=== PATIENT | female | born 1985 | race Caucasian/White ===

== ENCOUNTER 2016-06-13 12:03 | Emergency (ER) | payer OTHER ==
--- NOTE | 2016-06-13 15:54 | ED NURSING NOTES ---
Clinical Report - Nurses [facility] [place] [address] 06/13/2016 12:04 Patient: HINA RAPHAEL I TRIAGE Chief Complaint: ABDOMINAL PAIN. --13:26 Moiz Rowell R.N. Chief Complaint: ABDOMINAL CRAMPS and SPOTTING. --13:30 Moiz Rowell R.N. 13:32 06/13/16. BP: 117/59 (regular adult cuff) taken on the left arm, via an automated monitor, while lying. HR: 68. RR: 16. O2 saturation: 98%. Temp: 98.3 F (oral). Pain level now: 03/18. --13:32 Moiz Rowell R.N. Weight: 76.6 kg stated. Height/Length: 67 inches Per Patient. BMI: 26.5. --13:32 Moiz Rowell R.N. Medications Oral. --13:33 Moiz Rowell R.N. Allergies No Known Drug Allergy. --13:33 Moiz Rowell R.N. History Arrived by private vehicle, and accompanied by family. --13:26 Moiz Rowell R.N. Onset. (about 1 months). ( Patient presents to the ED with symptoms of lower abdominal cramping and spotting x1 month. Patient states she is 9 weeks . States that she has been evaluated in the ED twice for the same symptoms, but has been told that she is too early on in her to know if she has had a miscarriage. Patient states that she had a miscarriage in December of 2015.). Last oral intake by patient was yesterday. PAST MEDICAL HX: The patient has had care by an telehealth case manager. SOCIAL HX: Never smoker. Alcohol use. (no). History of drug use. (no). No infectious disease exposure. FALL RISK ASSESSMENT: Fall risk assessment completed. No fall risk identified. NUTRITIONAL RISK ASSESSMENT: The nutritional risk assessment revealed no deficiencies. FUNCTIONAL ASSESSMENT: Functional assessment: no impairments noted. LEARNING NEEDS ASSESSMENT: The learning needs assessment revealed no barriers. SKIN INTEGRITY ASSESSMENT: Skin integrity risk assessment completed. No skin integrity risk identified. --13:30 Moiz Rowell R.N. Treatment REFRACTIVE SURGEON: None. --13:30 Moiz Rowell R.N. PAST MEDICAL HX: OB history: G 9; P 6; Ab 2. --13:30 Moiz Rowell R.N. PROBLEMS: Problems. UTI - Urinary Tract Infection. Threatened . . Ectopic . Hypothyroidism. --13:34 Moiz Rowell R.N. ADDITIONAL SURGERIES: Dilatation & Curettage. Salpingectomy [2010]. --13:34 Moiz Rowell R.N. PHYSICAL ASSESSMENT Ambulatory to room. GENERAL / NEURO / PSYCH: Alert. Oriented X 4. Appears in no acute distress. HEENT: Mucous membranes are pink. RESPIRATORY: Respirations not labored. Breath sounds within normal limits. CVS: Normal heart rate and rhythm. Capillary refill less than 2 seconds. GI / : Abdomen soft and nontender. Bowel sounds within normal limits. Scant vaginal bleeding present, consisting of bright red blood (uses panty liners). EXTREMITIES: No lower extremity edema. SKIN: Skin is warm and dry. --13:35 Moiz Rowell R.N. NURSING PROGRESS NOTES The initial plan of care for this patient includes an assessment with efforts to address the patient's anxiety; impairment of the gastrointestinal and genitourinary system. This plan of care was discussed with the patient. Patient gowned. Head of bed elevated. Reassurance given. --13:27 Moiz Rowell R.N. Call light placed in reach. Side rails up x 1. --13:35 Moiz Rowell R.N. 14:15. Patient ID band checked for patient name and birthdate: patient confirmed. Blood samples drawn from the right antecubital space with 21g butterfly by tech ; labeled in presence of the patient: rainbow set. Addiction Medicine Physician provided for the pelvic exam by the physician. Urine collected with return of yellow-colored urine; sample sent to lab for urinalysis and culture. Specimen labeled in the presence of the patient. --15:04 Salina Flowers. DISPOSITION / DISCHARGE Condition at departure: improved. The goals identified in the patient's plan of care were met. No learning barriers present. Discharge instructions provided and reviewed with the patient. Reviewed medication(s) side effects, precautions, dosing and course information. Patient verbalized understanding. Written instructions provided in Ghanaian. The patient was discharged home and accompanied by spouse. She left the Emergency Department ambulatory and via private vehicle. Patient driving. FALL RISK ASSESSMENT: Fall risk assessment completed. No fall risk identified. --16:13 Moiz Rowell R.N. 16:11 06/13/16. BP: 116/68 taken on the right arm, while sitting. HR: 65. RR: 16. O2 saturation: 100%. Temp: 98.2 F (oral). Pain level now: 0/10. --16:13 Moiz Rowell R.N. Departure time: 1613 PM. --16:13 Moiz Rowell R.N. Locked/Released at 06/13/2016 16:15 by Moiz Rowell R.N.
--- NOTE | 2016-06-13 15:54 | ED ORDER SUMMARY ---
..... Patient: HINA RAPHAEL I OrderSheet [facility] VisitID: [id number] [place] [address] 30y, F Registration Date/Time: 06/13/2016 ORDER SHEET Weight: 76.6 kg (stated) Allergies: No Known Drug Allergy GENERAL ORDERS: US OB 1st Trimester w Transvag (9 wks) Urgent (14:00 06/13/2016 HBivens A.R.N.P.) (Ack 14:02 LTapper) (14:26 HOShaughnessy R.N.) UA-Culture if indicated Urgent (14:06/13/2016 HBivens A.R.N.P.) (Ack 14:02 LTapper) (14:26 HOShaughnessy R.N.) Serum Quantitative Urgent (14:06/13/2016 HBivens A.R.N.P.) (Ack 14:02 LTapper) (14:26 HOShaughnessy R.N.) Pelvic Exam Setup (14:01 06/13/2016 HBivens A.R.N.P.) (14:26 HOShaughnessy R.N.) Wet Prep (Cervix) (cervix) Urgent (14:14 06/13/2016 HBivens A.R.N.P.) (14:26 HOShaughnessy R.N.) (Ack 14:27 LTapper) MEDICATION ORDERS: IV FLUIDS: ORDER SHEET NOTES: [Electronically signed by Moiz Rowell R.N. (16:15 06/13/2016)] [Electronically signed by Kristie Nix.R.N.P. (16:42 06/13/2016)] [Electronically locked/signed by Moiz Rowell R.N. (16:15 06/13/2016)]
--- NOTE | 2016-06-13 15:54 | ED CLINICAL REPORT ---
Clinical Report - Physicians/Mid Levels [facility] [address] [place] [address] 06/13/2016 12:04 Patient: HINA RAPHAEL I Time Seen: 1328; initial patient contact, initial documentation, patient care assumed. Arrived- By private vehicle. Historian- patient. RETURN VISIT: recently seen in this ED by another ED physician. Seen now for the same problem as before. HISTORY OF PRESENT ILLNESS Chief Complaint: PELVIC PAIN. This started about 1 months ago and still present. The symptoms are described as moderate. The patient has had pelvic pain. She has had abnormal bleeding described as spotting this am. No vaginal pain, low back pain, flank pain, vaginal discharge or pain with urination. No urinary frequency, urgency of urination or hematuria. 9. Para 6. Abortions 2. Sexual history - sexually active, engages in unprotected sex and heterosexual. No contraception. Sexually active. Confirmed . In 1st trimester. Has had care by private doctor. Recent sonogram showed intrauterine . G 9. P 6. Receiving care by private doctor. Similar symptoms previously: Frequently, as bad. Recent medical care: The patient was seen recently in the emergency department and office. ( saw ob last week, US done, everything ok, doesn't know why she is hurting, txed at Prov 05/29 same thing). REVIEW OF SYSTEMS No vomiting, diarrhea, fever, difficulty breathing or chest pain. All systems otherwise negative, except as recorded above. PAST HISTORY See nurses notes. ( PROBLEMS: Problems. UTI - Urinary Tract Infection. Threatened . . Ectopic . Hypothyroidism. --13:34 Moiz Rowell, R.N. ADDITIONAL SURGERIES: Dilatation & Curettage. Salpingectomy [2010]. --13:34 Moiz Rowell, R.N.). SOCIAL HISTORY Never smoker. No alcohol use or drug use. No recent travel. Is a local resident. She lives with spouse. FAMILY HISTORY Negative. ADDITIONAL NOTES The nursing notes have been reviewed with agreement regarding the chief complaint, HPI, ROS, PMH and patient medications and allergies. PHYSICAL EXAM Vital Signs: 06/13/2016 13:32 BP: 117/59. HR: 68. RR: 16. O2 saturation: 98%. Temp: 98.3 F. Pain level now: 03/18. Have been reviewed as normal and appear to be correct. Appearance: Alert. Oriented X3. No acute distress. HEENT: Normal external inspection. ENT: Pharynx normal. Neck: Neck supple. CVS: Heart sounds normal. Respiratory: No respiratory distress. Breath sounds normal. Chest nontender. Abdomen: Soft and nontender. Bowel sounds normal. No organomegaly. No mass. Back: Normal external inspection. : External inspection normal. Speculum exam abnormal. A moderate amount of thick and white vaginal discharge present. Bimanual exam normal. Skin: Skin warm and dry. Normal skin color. No rash. Normal skin turgor. Extremities: Extremities nontender. No lower extremity edema. Neuro: Oriented X 3. Mood/affect normal. No sensory deficit. LABS, X-RAYS, AND EKG Pelvic Sonogram: . verbal report from [employer] Alicia irregular gestational sac, no bleed, no heart beat. Interpretation time: 1540. Laboratory Tests: UA-Culture if indicated: (PARI: 06/13/2016 13:35) ( MsgRcvd 06/13/2016 15:02) Final results Test Result Flag Units (Reference) URINE COLOR YELLOW URINE APPEARANCE CLEAR URINE GLUCOSE NEGATIVE (NEGATIVE) URINE BILIRUBIN NEGATIVE (NEGATIVE) URINE KETONE NEGATIVE (NEGATIVE) URINE SPECIFIC GRAVITY 1.010 (1.010-1.030) URINE PH 6.5 (5.0-8.0) URINE PROTEIN NEGATIVE (NEGATIVE) URINE UROBILINOGEN 0.2 EU/dL (0.2-1.0) URINE NITRITE NEGATIVE (NEGATIVE) URINE BLOOD TRACE-INTACT (NEGATIVE) URINE LEUK ESTERASE POSITIVE (NEGATIVE) URINE RBC 3-5 rbc/hpf (0-1) URINE WBC 5-10 wbc/hpf (0-1) URINE EPITHELIAL CELLS 5-10 EPI/hpf (0-5) URINE BACTERIA FEW (1+) (NONE SEEN) URINE COMMENT CULTURE INDICATED URINE CULTURES ARE SET-UP BASED ON THE FOLLOWING CRITERIA:POSITIVE NITRITEPOSITIVE LEUKOCYTE ESTERASEGREATER THAN 10 WHITE BLOOD CELLSMODERATE (2+) OR GREATER BACTERIA Serum Quantitative: (PARI: 06/13/2016 14:30) ( MsgRcvd 06/13/2016 15:48) Final results Test Result Flag Units (Reference) BETA HCG, QUANTITATIVE 90165 mIU/mL REFERENCE RANGE:Adult Males: <2 mIU/mLNon- Females: <6 mIU/mL Females:Approximate Approximate hCGGestational Age Range (mIU/mL) 0-1 week 0-501-2 weeks 40-3002-3 weeks 100-80952-9 weeks 500-03004-5 months 5,000-200,0002-3 months 10,000-100,0002nd trimester 3,000-50,0003rd trimester 1,000-50,000 Wet Prep: (PARI: 06/13/2016 14:15) ( MsgRcvd 06/13/2016 14:38) Final results SPECIMEN DESCRIPTION: CERVIX Test Result Flag Units (Reference) WET MOUNT CLUE CELLS:: FEW * EPITHELIAL CELLS: MODERATE -- SOURCE?: CX WHITE BLOOD CELLS: FEW TRICHOMONAS:: NONE -- YEAST:: NONE . PROGRESS AND PROCEDURES Course of Care: 14:14 06/13/16. pt has adiel for frequent er visits especially since Mar, see report for full details 14:16 06/13/16. past er records reviewed 05/24 quant 4696 O+ wet mount and gc tested on 05/13 all neg. Patient counseled in person regarding the patient's stable condition, test results and diagnosis. 15:51. Differential Diagnosis: I considered urinary tract infection, ovarian cyst, , ectopic , pelvic inflammatory disease, pelvic abscess, endometriosis and viral syndrome as a possible cause of pelvic pain in this patient. This is a partial list of diagnoses considered. Above considerations are based on history, physical exam, laboratory data and other information. Differential diagnosis was discussed with patient. Disposition: Discharged home in good and unchanged condition (15:54). Condition: good and stable. CLINICAL IMPRESSION Acute mild bacterial vaginitis Threatened . Ultrasound demonstrated an intrauterine . Acute urinary tract infection. No cystitis, pyelonephritis or hematuria. Not associated with indwelling catheter or obstruction. INSTRUCTIONS Warnings: GENERAL WARNINGS: Return or contact your physician immediately if your condition worsens or changes unexpectedly, if not improving as expected, or if other problems arise. Specifically return if problem worsens. Prescription Medications: Flagyl 500 mg: Take 1 tablet orally every 12 hours for 7 days. No refill. Substitution is permissible. Macrobid 100 mg: Take 1 capsule orally every 12 hours for 7 days. No refills. Substitution is permissible. Follow-up: Follow up with an vegetable farming supervisor in about three days even if well. Call for an appointment. Summary of care provided to patient. Understanding of the discharge instructions verbalized by patient. (Electronically signed by Kristie Nix A.R.N.P. 06/13/2016 16:42)
--- NOTE | 2016-06-13 15:54 | ED NURSING NOTES ---
Clinical Report - Nurses [place] [address] 06/13/2016 12:04 Patient: HINA RAPHAEL I TRIAGE Chief Complaint: ABDOMINAL PAIN. --13:26 Moiz Rowell R.N. Chief Complaint: ABDOMINAL CRAMPS and SPOTTING. --13:30 Moiz Rowell R.N. 13:32 06/13/16. BP: 117/59 (regular adult cuff) taken on the left arm, via an automated monitor, while lying. HR: 68. RR: 16. O2 saturation: 98%. Temp: 98.3 F (oral). Pain level now: 03/18. --13:32 Moiz Rowell R.N. Weight: 76.6 kg stated. Height/Length: 67 inches Per Patient. BMI: 26.5. --13:32 Moiz Rowell R.N. Medications Oral. --13:33 Moiz Rowell R.N. Allergies No Known Drug Allergy. --13:33 Moiz Rowell R.N. History Arrived by private vehicle, and accompanied by family. --13:26 Moiz Rowell R.N. Onset. (about 1 months). ( Patient presents to the ED with symptoms of lower abdominal cramping and spotting x1 month. Patient states she is 9 weeks . States that she has been evaluated in the ED twice for the same symptoms, but has been told that she is too early on in her to know if she has had a miscarriage. Patient states that she had a miscarriage in December of 2015.). Last oral intake by patient was yesterday. PAST MEDICAL HX: The patient has had care by an operator maintainer. SOCIAL HX: Never smoker. Alcohol use. (no). History of drug use. (no). No infectious disease exposure. FALL RISK ASSESSMENT: Fall risk assessment completed. No fall risk identified. NUTRITIONAL RISK ASSESSMENT: The nutritional risk assessment revealed no deficiencies. FUNCTIONAL ASSESSMENT: Functional assessment: no impairments noted. LEARNING NEEDS ASSESSMENT: The learning needs assessment revealed no barriers. SKIN INTEGRITY ASSESSMENT: Skin integrity risk assessment completed. No skin integrity risk identified. --13:30 Moiz Rowell R.N. Treatment BLASTING MINER: None. --13:30 Moiz Rowell R.N. PAST MEDICAL HX: OB history: G 9; P 6; Ab 2. --13:30 Moiz Rowell R.N. PROBLEMS: Problems. UTI - Urinary Tract Infection. Threatened . . Ectopic . Hypothyroidism. --13:34 Moiz Rowell R.N. ADDITIONAL SURGERIES: Dilatation & Curettage. Salpingectomy [2010]. --13:34 Moiz Rowell R.N. PHYSICAL ASSESSMENT Ambulatory to room. GENERAL / NEURO / PSYCH: Alert. Oriented X 4. Appears in no acute distress. HEENT: Mucous membranes are pink. RESPIRATORY: Respirations not labored. Breath sounds within normal limits. CVS: Normal heart rate and rhythm. Capillary refill less than 2 seconds. GI / : Abdomen soft and nontender. Bowel sounds within normal limits. Scant vaginal bleeding present, consisting of bright red blood (uses panty liners). EXTREMITIES: No lower extremity edema. SKIN: Skin is warm and dry. --13:35 Moiz Rowell R.N. NURSING PROGRESS NOTES The initial plan of care for this patient includes an assessment with efforts to address the patient's anxiety; impairment of the gastrointestinal and genitourinary system. This plan of care was discussed with the patient. Patient gowned. Head of bed elevated. Reassurance given. --13:27 Moiz Rowell R.N. Call light placed in reach. Side rails up x 1. --13:35 Moiz Rowell R.N. 14:15. Patient ID band checked for patient name and birthdate: patient confirmed. Blood samples drawn from the right antecubital space with 21g butterfly by tech ; labeled in presence of the patient: rainbow set. Deep Fryer Assembler provided for the pelvic exam by the physician. Urine collected with return of yellow-colored urine; sample sent to lab for urinalysis and culture. Specimen labeled in the presence of the patient. --15:04 Salina Flowers. DISPOSITION / DISCHARGE Condition at departure: improved. The goals identified in the patient's plan of care were met. No learning barriers present. Discharge instructions provided and reviewed with the patient. Reviewed medication(s) side effects, precautions, dosing and course information. Patient verbalized understanding. Written instructions provided in East Timorese. The patient was discharged home and accompanied by spouse. She left the Emergency Department ambulatory and via private vehicle. Patient driving. FALL RISK ASSESSMENT: Fall risk assessment completed. No fall risk identified. --16:13 Moiz Rowell R.N. 16:11 06/13/16. BP: 116/68 taken on the right arm, while sitting. HR: 65. RR: 16. O2 saturation: 100%. Temp: 98.2 F (oral). Pain level now: 0/10. --16:13 Moiz Rowell R.N. Departure time: 1613 PM. --16:13 Moiz Rowell R.N. Locked/Released at 06/13/2016 16:15 by Moiz Rowell R.N.
--- NOTE | 2016-06-13 15:54 | ED ORDER SUMMARY ---
..... Patient: HINA RAPHAEL I OrderSheet [facility] VisitID: [id number] [place] [address] 30y, F Registration Date/Time: 06/13/2016 ORDER SHEET Weight: 76.6 kg (stated) Allergies: No Known Drug Allergy GENERAL ORDERS: US OB 1st Trimester w Transvag (9 wks) Urgent (14:00 06/13/2016 HBivens A.R.N.P.) (Ack 14:02 LTapper) (14:26 HOShaughnessy R.N.) UA-Culture if indicated Urgent (14:06/13/2016 HBivens A.R.N.P.) (Ack 14:02 LTapper) (14:26 HOShaughnessy R.N.) Serum Quantitative Urgent (14:06/13/2016 HBivens A.R.N.P.) (Ack 14:02 LTapper) (14:26 HOShaughnessy R.N.) Pelvic Exam Setup (14:01 06/13/2016 HBivens A.R.N.P.) (14:26 HOShaughnessy R.N.) Wet Prep (Cervix) (cervix) Urgent (14:14 06/13/2016 HBivens A.R.N.P.) (14:26 HOShaughnessy R.N.) (Ack 14:27 LTapper) MEDICATION ORDERS: IV FLUIDS: ORDER SHEET NOTES: [Electronically signed by Moiz Rowell R.N. (16:15 06/13/2016)] [Electronically signed by Kristie Nix.R.N.P. (16:42 06/13/2016)] [Electronically locked/signed by Moiz Rowell R.N. (16:15 06/13/2016)]
--- NOTE | 2016-06-13 15:54 | ED CLINICAL REPORT ---
Clinical Report - Physicians/Mid Levels [facility] [address] [place] [address] 06/13/2016 12:04 Patient: HINA RAPHAEL I Time Seen: 1328; initial patient contact, initial documentation, patient care assumed. Arrived- By private vehicle. Historian- patient. RETURN VISIT: recently seen in this ED by another ED physician. Seen now for the same problem as before. HISTORY OF PRESENT ILLNESS Chief Complaint: PELVIC PAIN. This started about 1 months ago and still present. The symptoms are described as moderate. The patient has had pelvic pain. She has had abnormal bleeding described as spotting this am. No vaginal pain, low back pain, flank pain, vaginal discharge or pain with urination. No urinary frequency, urgency of urination or hematuria. 9. Para 6. Abortions 2. Sexual history - sexually active, engages in unprotected sex and heterosexual. No contraception. Sexually active. Confirmed . In 1st trimester. Has had care by private doctor. Recent sonogram showed intrauterine . G 9. P 6. Receiving care by private doctor. Similar symptoms previously: Frequently, as bad. Recent medical care: The patient was seen recently in the emergency department and office. ( saw ob last week, US done, everything ok, doesn't know why she is hurting, txed at Prov 05/29 same thing). REVIEW OF SYSTEMS No vomiting, diarrhea, fever, difficulty breathing or chest pain. All systems otherwise negative, except as recorded above. PAST HISTORY See nurses notes. ( PROBLEMS: Problems. UTI - Urinary Tract Infection. Threatened . . Ectopic . Hypothyroidism. --13:34 Moiz Rowell, R.N. ADDITIONAL SURGERIES: Dilatation & Curettage. Salpingectomy [2010]. --13:34 Moiz Rowell, R.N.). SOCIAL HISTORY Never smoker. No alcohol use or drug use. No recent travel. Is a local resident. She lives with spouse. FAMILY HISTORY Negative. ADDITIONAL NOTES The nursing notes have been reviewed with agreement regarding the chief complaint, HPI, ROS, PMH and patient medications and allergies. PHYSICAL EXAM Vital Signs: 06/13/2016 13:32 BP: 117/59. HR: 68. RR: 16. O2 saturation: 98%. Temp: 98.3 F. Pain level now: 03/18. Have been reviewed as normal and appear to be correct. Appearance: Alert. Oriented X3. No acute distress. HEENT: Normal external inspection. ENT: Pharynx normal. Neck: Neck supple. CVS: Heart sounds normal. Respiratory: No respiratory distress. Breath sounds normal. Chest nontender. Abdomen: Soft and nontender. Bowel sounds normal. No organomegaly. No mass. Back: Normal external inspection. : External inspection normal. Speculum exam abnormal. A moderate amount of thick and white vaginal discharge present. Bimanual exam normal. Skin: Skin warm and dry. Normal skin color. No rash. Normal skin turgor. Extremities: Extremities nontender. No lower extremity edema. Neuro: Oriented X 3. Mood/affect normal. No sensory deficit. LABS, X-RAYS, AND EKG Pelvic Sonogram: . verbal report from Aldis Alicia irregular gestational sac, no bleed, no heart beat. Interpretation time: 1540. Laboratory Tests: UA-Culture if indicated: (PARI: 06/13/2016 13:35) ( MsgRcvd 06/13/2016 15:02) Final results Test Result Flag Units (Reference) URINE COLOR YELLOW URINE APPEARANCE CLEAR URINE GLUCOSE NEGATIVE (NEGATIVE) URINE BILIRUBIN NEGATIVE (NEGATIVE) URINE KETONE NEGATIVE (NEGATIVE) URINE SPECIFIC GRAVITY 1.010 (1.010-1.030) URINE PH 6.5 (5.0-8.0) URINE PROTEIN NEGATIVE (NEGATIVE) URINE UROBILINOGEN 0.2 EU/dL (0.2-1.0) URINE NITRITE NEGATIVE (NEGATIVE) URINE BLOOD TRACE-INTACT (NEGATIVE) URINE LEUK ESTERASE POSITIVE (NEGATIVE) URINE RBC 3-5 rbc/hpf (0-1) URINE WBC 5-10 wbc/hpf (0-1) URINE EPITHELIAL CELLS 5-10 EPI/hpf (0-5) URINE BACTERIA FEW (1+) (NONE SEEN) URINE COMMENT CULTURE INDICATED URINE CULTURES ARE SET-UP BASED ON THE FOLLOWING CRITERIA:POSITIVE NITRITEPOSITIVE LEUKOCYTE ESTERASEGREATER THAN 10 WHITE BLOOD CELLSMODERATE (2+) OR GREATER BACTERIA Serum Quantitative: (PARI: 06/13/2016 14:30) ( MsgRcvd 06/13/2016 15:48) Final results Test Result Flag Units (Reference) BETA HCG, QUANTITATIVE 32184 mIU/mL REFERENCE RANGE:Adult Males: <2 mIU/mLNon- Females: <6 mIU/mL Females:Approximate Approximate hCGGestational Age Range (mIU/mL) 0-1 week 0-501-2 weeks 40-3002-3 weeks 100-94079-2 weeks 500-67845-6 months 5,000-200,0002-3 months 10,000-100,0002nd trimester 3,000-50,0003rd trimester 1,000-50,000 Wet Prep: (PARI: 06/13/2016 14:15) ( MsgRcvd 06/13/2016 14:38) Final results SPECIMEN DESCRIPTION: CERVIX Test Result Flag Units (Reference) WET MOUNT CLUE CELLS:: FEW * EPITHELIAL CELLS: MODERATE -- SOURCE?: CX WHITE BLOOD CELLS: FEW TRICHOMONAS:: NONE -- YEAST:: NONE . PROGRESS AND PROCEDURES Course of Care: 14:14 06/13/16. pt has adiel for frequent er visits especially since Mar, see report for full details 14:16 06/13/16. past er records reviewed 05/24 quant 4696 O+ wet mount and gc tested on 05/13 all neg. Patient counseled in person regarding the patient's stable condition, test results and diagnosis. 15:51. Differential Diagnosis: I considered urinary tract infection, ovarian cyst, , ectopic , pelvic inflammatory disease, pelvic abscess, endometriosis and viral syndrome as a possible cause of pelvic pain in this patient. This is a partial list of diagnoses considered. Above considerations are based on history, physical exam, laboratory data and other information. Differential diagnosis was discussed with patient. Disposition: Discharged home in good and unchanged condition (15:54). Condition: good and stable. CLINICAL IMPRESSION Acute mild bacterial vaginitis Threatened . Ultrasound demonstrated an intrauterine . Acute urinary tract infection. No cystitis, pyelonephritis or hematuria. Not associated with indwelling catheter or obstruction. INSTRUCTIONS Warnings: GENERAL WARNINGS: Return or contact your physician immediately if your condition worsens or changes unexpectedly, if not improving as expected, or if other problems arise. Specifically return if problem worsens. Prescription Medications: Flagyl 500 mg: Take 1 tablet orally every 12 hours for 7 days. No refill. Substitution is permissible. Macrobid 100 mg: Take 1 capsule orally every 12 hours for 7 days. No refills. Substitution is permissible. Follow-up: Follow up with an laboratory equipment cleaner in about three days even if well. Call for an appointment. Summary of care provided to patient. Understanding of the discharge instructions verbalized by patient. (Electronically signed by Kristie Nix A.R.N.P. 06/13/2016 16:42)
--- NOTE | 2016-06-13 16:43 | ED MED RECONCILIATION SUMMARY ---
Patient: HINA RAPHAEL I Medication Reconciliation Report [facility] VisitID: [id number] [address] [place] [address] 30y, F Registration Date/Time: 06/13/2016 Weight: 76.6 kg Height/Length: 67 in. BMI: 26.5 ALLERGIES: No Known Drug Allergy The patient's Home Medications are listed below: THE FOLLOWING MEDICATIONS NEED TO BE RECONCILED: Oral The source(s) of the original Home Medication information: Not obtained. The following Medications were given to the patient in the Emergency Department: None. The following Medications were prescribed to the patient: Flagyl 500 mg: Take 1 tablet orally every 12 hours for 7 days. No refill. Substitution is permissible. -- Kristie Nix, Anthony.R.N.P. Macrobid 100 mg: Take 1 capsule orally every 12 hours for 7 days. No refills. Substitution is permissible. -- Kristie Nix A.R.N.P.
--- NOTE | 2016-06-13 16:43 | ED DISCHARGE INSTRUCTIONS ---
Patient: HINA RAPHAEL I General Instructions [facility] VisitID: [id number] [place] [address] 30y, F Registration Date/Time: 06/13/2016 Acute mild bacterial vaginitis Acute urinary tract infection. No cystitis, pyelonephritis or hematuria. Not associated with indwelling catheter or obstruction. INSTRUCTIONS Warnings: GENERAL WARNINGS: Return or contact your physician immediately if your condition worsens or changes unexpectedly, if not improving as expected, or if other problems arise. Specifically return if problem worsens. Prescription Medications: Flagyl 500 mg: Take 1 tablet orally every 12 hours for 7 days. No refill. Substitution is permissible. Macrobid 100 mg: Take 1 capsule orally every 12 hours for 7 days. No refills. Substitution is permissible. Follow-up: Follow up with an spool tender in about three days even if well. Call for an appointment. Summary of care provided to patient. Understanding of the discharge instructions verbalized by patient. ADDITIONAL INFORMATION Bacterial Vaginosis You have a bacterial infection of the vagina called bacterial vaginosis (BV). It may also be called gardnerella or non-specific vaginitis. BV occurs when the "bad" bacteria outnumber the "good" bacteria that are normally present in the vagina. Symptoms include foul-smelling vaginal discharge (most noticeable after vaginal intercourse). There may also be burning with urination. The burning is caused as the urine passes over the inflamed outer vaginal area. The cause of bacterial vaginosis is not certain. However, your risk is higher if you recently began a new sexual relationship, or have had many sex partners in the past. Your risk is also higher if you douche often. While bacterial vaginosis most often occurs only in sexually active women, this is not a true sexually transmitted disease. You did not get this from your partner. You cannot give it to your partner. The infection may be related to temporary changes in the pH of vaginal fluids after being exposed to semen. Home Care: Keep the genital area clean and free of discharge. Do this by wearing an absorbent sanitary pad and changing it often. Shower daily. When you shower, clean the outer vaginal area with plain soap and water. Do not douche during treatment unless advised to do so by your doctor. Routine douching after treatment is no longer recommended to clean the vagina. It raises your risk of vaginal infection and pelvic inflammatory disease. Avoid having sex until you have finished all antibiotic medicine and all symptoms have gone away. Wear cotton underwear or cotton-lined panty hose. Dont wear pants that are too tight. Limiting the number of sex partners you have lowers your risk of this and other vaginal infections, STDs, and HIV. Take all medicine as directed until it is gone, even if you are feeling better. If you dont do this, symptoms might return. Follow Up with your doctor if symptoms dont go away after the medicine is finished. Get Prompt Medical Attention if any of the following occur: Fever of 100.4F (38C) or higher, or as directed by your healthcare provider Lower abdominal pain Rash or joint pain Painful sores around the outer vaginal area or on your partners penis Bladder Infection,Female (Adult) A bladder infection ("cystitis" or "UTI") usually causes a constant urge to urinate and a burning when passing urine. Urine may be cloudy, smelly or dark. There may be pain in the lower abdomen. A bladder infection occurs when bacteria from the vaginal area enter the bladder opening (urethra). This can occur from sexual intercourse, wearing tight clothing, dehydration and other factors. Home Care: Drink lots of fluids (at least 6-8 glasses a day, unless you must restrict fluids for other medical reasons). This will force the medicine into your urinary system and flush the bacteria out of your body. Avoid sexual intercourse until your symptoms are gone. Avoid caffeine, alcohol and spicy foods. These can irritate the bladder. A bladder infection is treated with antibiotics. You may also be given Pyridium (generic = phenazopyridine) to reduce the burning sensation. This medicine will cause your urine to become a bright orange color. The orange urine may stain clothing. You may wear a pad or panty-liner to protect clothing. Preventing Future Infections: Always wipe from front to back after a bowel movement. Keep the genital area clean and dry. Drink plenty of fluids each day to avoid dehydration. Both sexual partners should wash before intercourse. Urinate right after intercourse to flush out the bladder. Wear cotton underwear and cotton-lined panty hose; avoid tight-fitting pants. If you are on control pills and are having frequent bladder infections, discuss with your doctor. Follow Up: Return to this facility or see your doctor if ALL symptoms are not gone after three days of treatment. Get Prompt Medical Attention if any of the following occur: Fever of 100.4F (38C) or higher, or as directed by your healthcare provider No improvement by the third day of treatment Increasing back or abdominal pain Repeated vomiting; unable to keep medicine down Weakness, dizziness or fainting Vaginal discharge Pain, redness or swelling in the labia (outer vaginal area) Possible Miscarriage (Threatened ) During early (first three months), it is not uncommon to have a small amount of bleeding. This can be entirely normal. But heavy bleeding or severe cramping can be an early sign of miscarriage. A miscarriage means unexpected loss of your . In about half of patients with bleeding or cramping during early , these symptoms will stop and the will continue normally. However, half of the time a miscarriage will occur. A miscarriage may occur due to various causes. These include a problem with the babys chromosomes (genes that carry the information needed for life) or with fertilization or implantation that didnt happen correctly. In most cases no cause can be found. Be reassured that this is not the result of anything that you did wrong, and it will not interfere with your ability to become in the future. Home Care: To improve the chance of keeping this , you should do the following: Rest in bed until the pain and bleeding stop. Do not have sexual intercourse for the next 3 weeks. Use sanitary napkins instead of tampons. Do not douche. Follow-Up: Make an appointment with your doctor within the next week, or as directed by our staff. Note: If you had an ultrasound, it will be reviewed by a specialist. You will be notified of any new findings that may affect your care. Get Prompt Medical Attention if any of the following occur: Vaginal bleeding or pain for more than three days Heavy bleeding (soaking one new pad an hour over three hours) Fever of 100.4F (38C) or higher, or as directed by your healthcare provider Increasing lower abdominal pain Weakness, dizziness, or fainting Passage of anything that resembles tissue: pink or grayish membrane or solid material (save the tissue in a clean container and bring to the doctor) Metronidazole Oral tablet What is this medicine? METRONIDAZOLE (me troe NI da zole) is an antiinfective. It is used to treat certain kinds of bacterial and protozoal infections. It will not work for colds, flu, or other viral infections. How should I use this medicine? Take this medicine by mouth with a full glass of water. Follow the directions on the prescription label. Take your medicine at regular intervals. Do not take your medicine more often than directed. Take all of your medicine as directed even if you think you are better. Do not skip doses or stop your medicine early. Talk to your nail welter regarding the use of this medicine in children. Special care may be needed. What side effects may I notice from receiving this medicine? Side effects that you should report to your doctor or health hearing healthcare practitioner as soon as possible: allergic reactions like skin rash or hives, swelling of the face, lips, or tongue confusion, clumsiness difficulty speaking discolored or sore mouth dizziness fever, infection numbness, tingling, pain or weakness in the hands or feet trouble passing urine or change in the amount of urine redness, blistering, peeling or loosening of the skin, including inside the mouth seizures unusually weak or tired vaginal irritation, dryness, or discharge Side effects that usually do not require medical attention (report to your doctor or health hearing healthcare practitioner if they continue or are bothersome): diarrhea headache irritability metallic taste nausea stomach pain or cramps trouble sleeping What may interact with this medicine? Do not take this medicine with any of the following medications: alcohol or any product that contains alcohol amprenavir oral solution cisapride disulfiram dofetilide dronedarone paclitaxel injection pimozide ritonavir oral solution sertraline oral solution sulfamethoxazole-trimethoprim injection thioridazine ziprasidone This medicine may also interact with the following medications: cimetidine lithium other medicines that prolong the QT interval (cause an abnormal heart rhythm) phenobarbital phenytoin warfarin What if I miss a dose? If you miss a dose, take it as soon as you can. If it is almost time for your next dose, take only that dose. Do not take double or extra doses. Where should I keep my medicine? Keep out of the reach of children. Store at room temperature below 25 degrees C (77 degrees F). Protect from light. Keep container tightly closed. Throw away any unused medicine after the expiration date. What should I tell my health care provider before I take this medicine? They need to know if you have any of these conditions: anemia or other blood disorders disease of the nervous system fungal or yeast infection if you drink alcohol containing drinks liver disease seizures an unusual or allergic reaction to metronidazole, or other medicines, foods, dyes, or preservatives or trying to get breast-feeding What should I watch for while using this medicine? Tell your doctor or health hearing healthcare practitioner if your symptoms do not improve or if they get worse. You may get drowsy or dizzy. Do not drive, use machinery, or do anything that needs mental alertness until you know how this medicine affects you. Do not stand or sit up quickly, especially if you are an older patient. This reduces the risk of dizzy or fainting spells. Avoid alcoholic drinks while you are taking this medicine and for three days afterward. Alcohol may make you feel dizzy, sick, or flushed. If you are being treated for a sexually transmitted disease, avoid sexual contact until you have finished your treatment. Your sexual partner may also need treatment. Nitrofurantoin, Nitrofurantoin, Macrocrystalline Oral capsule What is this medicine? NITROFURANTOIN (albin mikayla tripp AN toyn) is an antibiotic. It is used to treat urinary tract infections. How should I use this medicine? Take this medicine by mouth with a glass of water. Follow the directions on the prescription label. Take this medicine with food or milk. Take your doses at regular intervals. Do not take your medicine more often than directed. Do not stop taking except on your doctor's advice. Talk to your nail welter regarding the use of this medicine in children. While this drug may be prescribed for selected conditions, precautions do apply. What side effects may I notice from receiving this medicine? Side effects that you should report to your doctor or health hearing healthcare practitioner as soon as possible: allergic reactions like skin rash or hives, swelling of the face, lips, or tongue chest pain cough difficulty breathing dizziness, drowsiness fever or infection joint aches or pains pale or blue-tinted skin redness, blistering, peeling or loosening of the skin, including inside the mouth tingling, burning, pain, or numbness in hands or feet unusual bleeding or bruising unusually weak or tired yellowing of eyes or skin Side effects that usually do not require medical attention (report to your doctor or health hearing healthcare practitioner if they continue or are bothersome): dark urine diarrhea headache loss of appetite nausea or vomiting temporary hair loss What may interact with this medicine? antacids containing magnesium trisilicate probenecid quinolone antibiotics like ciprofloxacin, lomefloxacin, norfloxacin and ofloxacin sulfinpyrazone What if I miss a dose? If you miss a dose, take it as soon as you can. If it is almost time for your next dose, take only that dose. Do not take double or extra doses. Where should I keep my medicine? Keep out of the reach of children. Store at room temperature between 15 and 30 degrees C (59 and 86 degrees F). Protect from light. Throw away any unused medicine after the expiration date. What should I tell my health care provider before I take this medicine? They need to know if you have any of these conditions: anemia diabetes [id number] dehydrogenase deficiency kidney disease liver disease lung disease other chronic illness an unusual or allergic reaction to nitrofurantoin, other antibiotics, other medicines, foods, dyes or preservatives or trying to get breast-feeding What should I watch for while using this medicine? Tell your doctor or health hearing healthcare practitioner if your symptoms do not improve or if you get new symptoms. Drink several glasses of water a day. If you are taking this medicine for a long time, visit your doctor for regular checks on your progress. If you are diabetic, you may get a false positive result for sugar in your urine with certain brands of urine tests. Check with your doctor. You have been given the following additional information: Vaginitis, Bacterial Bladder Infection, Female (Adult) Possible Miscarriage (Threatened ) Metronidazole Oral tablet Nitrofurantoin, Nitrofurantoin, Macrocrystalline Oral capsule (Electronically signed by Kristie Nix A.R.N.P. 06/13/2016 16:42)
--- NOTE | 2016-06-13 16:43 | ED MED RECONCILIATION SUMMARY ---
Patient: HINA RAPHAEL I Medication Reconciliation Report [facility] VisitID: [id number] [address] [place] [address] 30y, F Registration Date/Time: 06/13/2016 Weight: 76.6 kg Height/Length: 67 in. BMI: 26.5 ALLERGIES: No Known Drug Allergy The patient's Home Medications are listed below: THE FOLLOWING MEDICATIONS NEED TO BE RECONCILED: Oral The source(s) of the original Home Medication information: Not obtained. The following Medications were given to the patient in the Emergency Department: None. The following Medications were prescribed to the patient: Flagyl 500 mg: Take 1 tablet orally every 12 hours for 7 days. No refill. Substitution is permissible. -- Kristie Nix, Anthony.R.N.P. Macrobid 100 mg: Take 1 capsule orally every 12 hours for 7 days. No refills. Substitution is permissible. -- Kristie Nix A.R.N.P.
--- NOTE | 2016-06-13 16:43 | ED MAR SUMMARY ---
..... Medication Administration Record [facility] [address] [place] [place], [place] [id number] Patient: HINA RAPHAEL I Visit ID: [id number] 30y, F Weight: 76.6 kg Height/Length: 67 in BMI: 26.5 ALLERGIES: No Known Drug Allergy
--- NOTE | 2016-06-13 16:43 | ED MAR SUMMARY ---
..... Medication Administration Record [facility] [address] [place], [place] [id number] Patient: HINA RAPHAEL I Visit ID: [id number] 30y, F Weight: 76.6 kg Height/Length: 67 in BMI: 26.5 ALLERGIES: No Known Drug Allergy
--- NOTE | 2016-06-13 16:58 | DIAGNOSTIC IMAGING REPORT ---
PROCEDURE: US OB 1ST TRIMESTER W/TRANSVAG INDICATION: Pain. Rising hCG level (reportedly 24,000). TECHNIQUE: Velázquez scale, color, and spectral Doppler transabdominal and endovaginal sonographic images of the first trimester gravid uterus were obtained. COMPARISON: Compared to obstetrical ultrasound studies on 05/24/2016 and 05/13/2016. FINDINGS: TRANSABDOMINAL SCANS: Early intrauterine gestational sac. TRANSVAGINAL SCANS: There is an abnormal in early intrauterine gestational sac (1.9 cm, 7.0 weeks). There is a small amount of tissue within the gestational sac, but there is no evidence of pole or yolk sac. There is a 3 cm left ovarian cyst. Right adnexal region is normal. IMPRESSION: 1. There is an abnormal early intrauterine gestational sac consistent with a blighted ovum. 2. There is a 3 cm left ovarian cyst. 3. Findings discussed with KRYSTAL Lara.
== END 2016-06-13 16:14 | disposition home or self-care (01) ==
LOC: ED SRH 12:03
DX: O20.0 Threatened abortion (principal); O23.591 Infection of other part of genital tract in pregnancy, first trimester; B96.89 Other specified bacterial agents as the cause of diseases classified elsewhere; O23.41 Unspecified infection of urinary tract in pregnancy, first trimester; O99.281 Endocrine, nutritional and metabolic diseases complicating pregnancy, first trimester; E03.9 Hypothyroidism, unspecified; Z3A.00 Weeks of gestation of pregnancy not specified
CPT/HCPCS: 90004; 90070; 90074; 90195; 90197; 90469